=== PATIENT | male | born 1970 | race Hispanic/Latino ===

== ENCOUNTER 2022-02-19 13:15 | Day surgery (SDC) | payer SELFPAY ==
[2022-02-19] MEDS ORDERED: Ringers Lactate 1,000 ML IV ONE (13:34)
[2022-02-19] MEDS ORDERED: CEFAZOLIN SODIUM 1 GM/VIAL ONE (13:34)
[2022-02-19] MEDS ORDERED: ACETAMINOPHEN 500 MG TAB ONE (14:09)
[2022-02-19] MEDS ORDERED: SODIUM HYPOCHLORITE 0.25% 473 ML ONE (14:20)
[2022-02-19] MEDS ORDERED: CELECOXIB 100 MG CAPSULE ONE (14:21)
[2022-02-19] MEDS ORDERED: propofoL 200 MG/20 ML VIAL IV ONE ×2 (14:23→14:24)
[2022-02-19 14:24] LABS: SARS-CoV-2 Antigen Rapid Res Negative (Negative)
[2022-02-19] MEDS ORDERED: LIDOCAINE 1% MPF 5 ML VIAL ONE (14:24)
[2022-02-19] MEDS ORDERED: ROCURONIUM 50 MG/5 ML VIAL IV ONE (14:24)
[2022-02-19] MEDS ORDERED: MIDAZOLAM HCL 2 MG/2 ML INJ ONE (14:24)
[2022-02-19] MEDS ORDERED: FENTANYL CITR 100 MCG/2 ML ONE (14:24)
[2022-02-19] MEDS ORDERED: VANCOMYCIN 1 GM/VIAL ONE (14:41)
[2022-02-19] MEDS ORDERED: SUGAMMADEX SODIUM 200 MG/2 ML VIAL IV ONE (15:03)
[2022-02-19 15:04] LABS: Absolute Lymphocytes (CBC) 2.3 K/uL (0.7-4.9); Hematocrit 39.9 % (39.6-49.0); Lymphocytes % 22.5 % (15.3-44.8); MCV 77.2 fL (80-100); MPV 6.7 fL (7.6-11.3); RBC Red Blood Cell Count 5.17 M/uL (4.33-5.43)
[2022-02-19 15:26] LABS: Potassium 4.3 mmol/L (3.5-5.1)
--- NOTE | 2022-02-19 15:32 | P.OP ---
Preoperative diagnosis: Central Back infected back cyst Postoperative diagnosis: Central Back infected back cyst Primary procedure: Excisional Debridment of Central Back infected back cyst Anesthesia: GETA Estimated blood loss: <50cc Specimen: cultures and debridement tissue Findings: ~12 cm x 12 cm infected cyst to muscle fascia, necrosis Complications: None Transferred to: Recovery Room Condition: Good
[2022-02-19] MEDS ORDERED: ALBUTEROL INHALER 60 PUFF/8 GM IH ONE (15:47)
[2022-02-19] MEDS ORDERED: SUCCINYLCHOLINE 20 MG/ML (10 ML) IV ONE (16:07)
[2022-02-19] MEDS ORDERED: HYDROMORPHONE HCL 1 MG/ML INJ ONE (16:21)
[2022-02-19 16:38] VITALS: BP 107/65; TEMP 96.3; O2SAT 97
[2022-02-19] MEDS ORDERED: HYDROCODONE/APAP 10/325 TAB ONE (16:53)
--- NOTE | 2022-02-20 02:21 | OP ---
Date of Procedure: 02/19/2022 Surgeon: David Paniagua MD, Preoperative Diagnosis: Central back infected cyst. Postoperative Diagnosis: Central back infected cyst. Procedure Performed: Excisional debridement of central back infected cyst. Anesthesia: General endotracheal. Estimated Blood Loss: Less than 50 cc. Specimen: Cultures were sent for both aerobic and anaerobic speciation and debridement tissue. Findings: Approximately 12 cm x 2 cm infected cyst with undermining extending to the muscle and fasc ia with obvious necrosis and abscess. Complications: None. The patient was transferred to recovery room in good condition. Procedure In Detail: After informed consent was obtained, the patient was brought to the operating r oom and prepped and draped in the usual sterile fashion. After adequate anesthesia achieved, a curvi linear incision was made on the upper central portion of the back down to an area of fluctuance. Imm ediately encountered was an abscess like material emanating approximately 0.5 L of infected abscess m aterial with necrosis of surrounding tissue under pressure. All of this was cultured for both aerobi c and anaerobic speciation. All tissue was then debrided sharply using a 15 blade down to subcutaneo us tissue using combination of electrocautery and circumferentially dissecting out all necrotic tissu e. Electrocautery was used to help achieve hemostasis. A curette was used to remove all nonviable t issue. The area was copiously irrigated. Hemostasis was once again achieved with electrocautery. A fter curetting was performed, the area was copiously irrigated once again. No additional hemostatic measures were required. The wound was then packed with Dakin-soaked Kerlix and a sterile dressing wa s placed over top. The patient tolerated the procedure without any complication and transferred to P ACU in good condition. All counts were correct at the end of the case. TK/MODL Voice ID: [id number] Report ID: [id number]
--- NOTE | 2022-02-20 06:22 | EKG ---
Test Date: 2022-02-19 Test Time: 13:52:23 Wearing Apparel Assembler: JEOVANNY MEASUREMENT RESULTS: Intervals: Rate: 61 WY: 154 QRSD: 96 QT: 410 QTc: 412 [place]: P: 58 WY: 154 QRS: -28 T: -5 INTERPRETIVE STATEMENTS: Normal sinus rhythm Minimal voltage criteria for LVH, may be normal variant Borderline ECG Compared to ECG 09/27/2014 06:52:07 Left ventricular hypertrophy now present Electronically Signed On 02-20-22 06:21:45 CDT by Jeramie Rebolledo
== END 2022-02-19 17:01 | disposition home or self-care (01) ==
LOC: OR 13:15
PROVIDERS: ATTEND Surgery
PROC: 0JB70ZZ Excision of Back Subcutaneous Tissue and Fascia, Open Approach (ICD-10-PCS; principal; 2022-02-19 15:45)
DX: L72.0 Epidermal cyst (principal); L02.212 Cutaneous abscess of back [any part, except buttock and flank]; I96 Gangrene, not elsewhere classified; Z20.822 Contact with and (suspected) exposure to COVID-19
CPT/HCPCS: 36415; 80048; 85025; 87070; 87075; 87205; 87811; 88304; 93005; J0330; J0690; J1170; J2250; J2704; J3010; J3370; J7120

== ENCOUNTER 2023-09-10 13:05 | Inpatient (IN) | payer SELFPAY ==
--- OUTSIDE RECORDS SUMMARY | 2023-09-10 13:07 | XMS REPORT | Continuity of Care Document ---
Author Name Unknown Address [address] [facility] [address] [place], [place] [id number] [place] [address] [facility] Address [address] [facility] [address] [place] [address] Care Team Providers Care Spot Washer Name Role Phone Reuben Ding Attending Clinician Unavailable Problems Condition Name Condition Details Condition Category Status Onset Date Resolution Date Last Treatment Date Treating Clinician Comments Source [id number] Essential hypertensi on Problem [facility] [id number] Body mass index [BMI] 45.0-49.9, adult Problem [facility] [id number] Mixed hyperlipid emia Problem [facility] Allergies, Adverse Reactions, Alerts Allergy Name Allergy Type Status Severity Reaction(s) Onset Date Inactive Date Treating Clinician Comments Source penicill amine penicill amine Active Unknown [facility] Social History Social Habit Start Date Stop Date Quantity Comments Source History of Tobacco Use [facility] Sex Assigned At [facility] Smoking Status Start Date Stop Date Source Never Smoker [facility] Medications Ordered Medication Name Filled Medication Name Start Date Stop Date Current Medication? Ordering Clinician Indication Dosage Frequency Signature (SIG) Comments Components Source Atorvastati n Calcium 40 MG Atorvastati n Calcium 40 MG 08-09 00:00: 00 No 1{table t} QD Atorvastat in Calcium 40 MG Atorvastati n Calcium 40 MG Atorvastati n Calcium 40 MG - 00:00: 00 No 1{table t} QD Atorvastat in Calcium 40 MG Voltaren 1 % Voltaren 1 % No QD Voltaren 1 % Lisinopril 10 MG Lisinopril 10 MG No 1{table t} QD Lisinopril 10 MG Voltaren 1 % Voltaren 1 % No QD Voltaren 1 % Lisinopril 10 MG Lisinopril 10 MG No 1{table t} QD Lisinopril 10 MG Voltaren 1 % Voltaren 1 % No QD Voltaren 1 % Lisinopril 20 MG Lisinopril 20 MG No 1{table t} QD Lisinopril 20 MG Atorvastati n Calcium 40 MG Atorvastati n Calcium 40 MG No 1{table t} QD Atorvastat in Calcium 40 MG Vital Signs Vital Name Observation Time Observation Value Comments Ibrahima gleason height 2023-09-02 13:40:00 69 [in_i] Commo n [facility] weight 2023-09-02 13:40:00 308.6 [lb_av] Co [facility] temperature 2023-09-02 13:40:00 98.6 [degF] Com [facility] bmi 2023-09-02 13:40:00 45.57 kg/m2 Comm on [facility] oximetry 2023-09-02 13:40:00 98 % Commo n [facility] respiratory rate 2023-09-02 13:40:00 16 /min [facility] blood pressure systolic 2023-09-02 13:40:00 150 mm[Hg] [facility] blood pressure diastolic 2023-09-02 13:40:00 82 mm[Hg] [facility] height 2023-08-09 15:40:00 69 [in_i] Commo n [facility] weight 2023-08-09 15:40:00 316.4 [lb_av] Co [facility] temperature 2023-08-09 15:40:00 98.4 [degF] Com mon [facility] bmi 2023-08-09 15:40:00 46.72 kg/m2 Comm on [facility] oximetry 2023-08-09 15:40:00 97 % Commo n [facility] respiratory rate 2023-08-09 15:40:00 16 /min [facility] blood pressure systolic 2023-08-09 15:40:00 134 mm[Hg] [facility] blood pressure diastolic 2023-08-09 15:40:00 78 mm[Hg] [facility] height 2023-07-07 16:00:00 69 [in_i] Commo n [facility] weight 2023-07-07 16:00:00 309 [lb_av] Comm on [facility] temperature 2023-07-07 16:00:00 99.2 [degF] Com mon [facility] bmi 2023-07-07 16:00:00 45.63 kg/m2 Comm on [facility] oximetry 2023-07-07 16:00:00 97 % Commo n [facility] respiratory rate 2023-07-07 16:00:00 16 /min [facility] Encounters Start Date/Time End Date/Time Encounter Type Admission Type Attending [facility] Facility Care Department Encounter ID Source 2023-07-07 15:42:01 Outpatient [facility] [id number] [facility] 2023-09-02 00:00:00 2023-09-02 00:00:00 OFFICE VISIT ESTAB PT LEVEL 4 [facility] [id number] [facility] 2023-08-09 00:00:00 2023-08-09 00:00:00 OFFICE VISIT ESTAB PT LEVEL 4 [facility] [id number] [facility] 2023-07-07 00:00:00 2023-07-07 00:00:00 OFFICE VISIT NEW PT LEVEL 4 [facility] [id number] [facility]
[2023-09-10] MEDS ORDERED: ONDANSETRON 4 MG/2 ML VIAL ONE (13:58)
[2023-09-10] MEDS ORDERED: NA CHLORIDE 0.9% 1,000 ML ONE (13:59)
[2023-09-10] MEDS ORDERED: MORPHINE 4 MG/ML SYR ONE (13:59)
[2023-09-10 14:24] LABS: Absolute Lymphocytes (CBC) 0.7 K/uL (0.7-4.9); Hematocrit 41.8 % (39.6-49.0); Lymphocytes % 3.7 % (15.3-44.8); MCV 77.5 fL (80-100); Platelets 294 thou/uL (152-406); RBC Red Blood Cell Count 5.39 M/uL (4.33-5.43)
[2023-09-10 14:43] LABS: Albumin 3.7 g/dL (3.4-5.0); Bilirubin Total 0.7 mg/dL (0.2-1.0); Potassium 3.8 mEq/L (3.5-5.1); Protein, Total 8.3 g/dL (6.4-8.2); Troponin High Sensitivity 9.8 pg/mL (<58.9)
--- NOTE | 2023-09-10 15:08 | RAD REPORT ---
EXAM DESCRIPTION: RAD - Chest Single View - 09/10/2023 2:58 pm CLINICAL HISTORY: CHEST PAIN COMPARISON: CHEST SINGLE VIEW dated 09/26/2014 FINDINGS: Lines: None. Lungs: No evidence of edema or pneumonia. Question vascular congestion. Pleural: No significant pleural effusions or pneumothorax. Cardiac: The heart size is within normal limits. Mediastinum: Within normal limits. Bones: No acute fractures. Other: None IMPRESSION: Question vascular congestion but no alveolar edema or consolidative airspace disease.
--- NOTE | 2023-09-10 15:52 | EDPHYS ---
Physician Documentation [facility] Name: Freddie Laird Age: 52 yrs Sex: Male : 1970 Arrival Date: 09/10/2023 Time: 13:05 Bed 7 Private MD: ED Physician Niko Bernal HPI: 09/10 13:52 This 52 yrs old Male presents to ER via Unassigned with complaints of ec2 Abdominal Pain. 13:52 Patient arrives today for evaluation of upper abdominal pain that started approximately ec2 12 hours ago. Reports associated nausea without vomiting, reports no diarrhea symptoms. Denies urinary complaints. Reports no abdominal surgeries. Does report history of hypertension and hyperlipidemia.. Historical: - Allergies: 13:56 No Known Allergies; cm10 - PMHx: 13:56 Hypertensive disorder; Hypercholesterolemia; cm10 - Immunization history:: Adult Immunizations up to date. - Social history:: Smoking status: Patient denies any tobacco usage or history of. ROS: 13:52 Constitutional: as per hpi ec2 Exam: 13:52 Constitutional: GEN: NAD Head: atraumatic Eyes: EOMI Ears: External ears are ec2 normal. CV: regular rate LUNGS: no respiratory distress ABD: non-distended, soft, tender in the epigastrium, no guarding, not rigid SKIN: no evidence of rashes MSK: no evidence of trauma NEURO: moves all extremities equally Vital Signs: 13:54 BP 167 / 84; Pulse 64; Resp 17; Temp 98.8; Pulse Ox 99% ; Weight 138.35 kg; Height 5 cm10 ft. 9 in. ; Pain 8/10; 16:00 BP 156 / 86; Pulse 66; Resp 15; Pulse Ox 98% on R/A; hb 16:36 BP 144 / 78; Pulse 79; Resp 17; Pulse Ox 98% ; hb 13:54 Body Mass Index 45.04 (138.35 kg, 175.26 cm) cm10 13:54 Pain Scale: Adult cm10 MDM: 13:42 Patient medically screened. ec2 13:52 ED course: Patient arrives today for upper abdominal pain. Examination remarkable for ec2 abdominal findings as noted above. Will obtain lab work, imaging, treat the patient's pain and reassess the patient. Currently considering process such as gastroenteritis, pancreatitis, gallbladder pathology. Will also assess for ACS.. 14:10 Data reviewed: vital signs. ED course: EKG independently reviewed and interpreted by ec2 wv, shows normal sinus rhythm, rate of 69, no acute ST segment elevations, nonconcerning intervals.. 14:38 ED course: CBC with leukocytosis noted.. ec2 14:44 ED course: Metabolic profile is reassuring. Lipase within normal ranges, troponin ec2 within normal ranges. . 15:44 ED course: CT imaging with concern for cholecystitis, will give the patient sally Chirinos surgery consulted, discussed case with the hospitalist, pending admission.. 09/10 13:52 Order name: CBC with Diff; Complete Time: 14:38 ec2 09/10 13:52 Order name: CMP; Complete Time: 14:43 ec2 09/10 13:52 Order name: Lipase; Complete Time: 14:43 ec2 09/10 13:53 Order name: Troponin High Sensitivity; Complete Time: 14:43 ec2 09/10 14:48 Order name: UAM ec2 09/10 16:36 Order name: Basic Metabolic Panel EDMS 09/10 16:36 Order name: Basic Metabolic Panel EDMS 09/10 16:36 Order name: Basic Metabolic Panel EDMS 09/10 16:36 Order name: Basic Metabolic Panel EDMS 09/10 16:36 Order name: Basic Metabolic Panel EDMS 09/10 16:36 Order name: Basic Metabolic Panel EDMS 09/10 16:36 Order name: CBC with Automated Diff EDMS 09/10 16:36 Order name: CBC with Automated Diff EDMS 09/10 16:36 Order name: CBC with Automated Diff EDMS 09/10 16:36 Order name: CBC with Automated Diff EDMS 09/10 16:36 Order name: CBC with Automated Diff EDMS 09/10 16:36 Order name: CBC with Automated Diff EDMS 09/10 16:36 Order name: Magnesium EDMS 09/10 16:36 Order name: Magnesium EDMS 09/10 16:36 Order name: Magnesium EDMS 09/10 16:36 Order name: Magnesium EDMS 09/10 16:36 Order name: Magnesium EDMS 09/10 16:36 Order name: Magnesium EDMS 09/10 16:36 Order name: Phosphorus EDMS 09/10 16:36 Order name: Phosphorus EDMS 09/10 16:36 Order name: Phosphorus EDMS 09/10 16:36 Order name: Phosphorus EDMS 09/10 16:36 Order name: Phosphorus EDMS 09/10 16:36 Order name: Phosphorus EDMS 09/10 16:36 Order name: Troponin High Sensitivity EDCO 09/10 16:36 Order name: Troponin High Sensitivity EDCO 09/10 16:36 Order name: Troponin High Sensitivity EDCO 09/10 13:52 Order name: CT Abd/Pelvis - IV Contrast Only; Complete Time: 16:11 ec2 09/10 13:53 Order name: CXR XRAY; Complete Time: 15:17 ec2 09/10 15:46 Order name: US Abdomen Limited; Complete Time: 16:32 ec2 09/10 13:53 Order name: EKG; Complete Time: 13:54 ec2 09/10 16:36 Order name: CONS Physician Consult EDCO 09/10 13:52 Order name: IV Saline Lock; Complete Time: 14:41 ec2 09/10 13:52 Order name: Labs collected and sent; Complete Time: 14:41 ec2 09/10 13:53 Order name: EKG - Nurse/Tech; Complete Time: 14:06 ec2 Administered Medications: 14:41 Drug: NS 0.9% IV 1000 ml IV at 1 bolus Per protocol; 1000 mL bolus Route: IV; Rate: 1 hb bolus; Site: right antecubital; 14:41 Drug: Ondansetron IVP 4 mg IVP once; over 2 minutes Route: IVP; Site: right antecubital;hb 14:41 Drug: morphine IVP or IV 4 mg IVP once over 4 mins Route: IVP; Infused Over: 4 mins; hb Site: right antecubital; 16:11 Drug: Piperacillin-Tazobactam IVPB 3.375 grams IVPB once over 60 mins; (mix in NS 100 hb mL) Route: IVPB; Infused Over: 60 mins; Site: left antecubital; Disposition Summary: 09/10/23 15:52 Hospitalization Ordered Notes: Hospitalization Status: Inpatient Admission ec2 Provider: Jay Jacobson ec2 Location: Telemetry/MedSur (Inpatient) ec2 Condition: Stable ec2 Problem: new ec2 Symptoms: have improved ec2 Bed/Room Type: Standard ec2 Room Assignment: 210(09/10/23 16:45) as6 Diagnosis - Acute cholecystitis ec2 Forms: - Medication Reconciliation Form ec2 - SBAR form ec2 - Leadership Thank You Letter ec2 Signatures: Dispatcher [employer] Faith Knox RN RN True Zazueta RN RN as6 Fide Westfall RN RN cm10 Niko Bernal MD MD ec2 Corrections: (The following items were deleted from the chart) 16:45 15:52 ec2 as6
--- NOTE | 2023-09-10 15:52 | ER ---
Nurse's Notes [facility] Name: Freddie Laird Age: 52 yrs Sex: Male : 1970 Arrival Date: 09/10/2023 Time: 13:05 Bed 7 Private MD: Diagnosis: Acute cholecystitis Presentation: 09/10 13:54 Chief complaint: Patient states: Epigastric abdominal pain onset at 0300 this morning. cm10 Pt states that the pain woke him up from his sleep. Pt reports vomiting. Pt states that he has taken Pepto and Tums with no relief. Pt noted to have tenderness to upper abdomen. Coronavirus screen: Vaccine status: Patient reports receiving the 1st dose of the Covid vaccine. Client denies travel out of the [place] in the last 14 days. Ebola Screen: Patient denies travel to an Ebola-affected area in the 21 days before illness onset. No symptoms or risks identified at this time. Initial Sepsis Screen: Does the patient meet any 2 criteria? No. Patient's initial sepsis screen is negative. Does the patient have a suspected source of infection? No. Patient's initial sepsis screen is negative. Risk Assessment: Do you want to hurt yourself or someone else? Patient reports no desire to harm self or others. Onset of symptoms was September 10, 2023. 13:54 Method Of Arrival: Ambulatory cm10 13:54 Acuity: WENDY 3 cm10 Historical: - Allergies: 13:56 No Known Allergies; cm10 - PMHx: 13:56 Hypertensive disorder; Hypercholesterolemia; cm10 - Immunization history:: Adult Immunizations up to date. - Social history:: Smoking status: Patient denies any tobacco usage or history of. Screenin:43 [facility] ED Fall Risk Assessment (Adult) Score/Fall Risk Level 0 - 2 = Low Risk hb Oriented to surroundings, Maintained a safe environment, Educated pt \T\ family on fall prevention, incl call for assistance when getting out of bed. Abuse screen: Denies threats or abuse. Denies injuries from another. Nutritional screening: No deficits noted. Tuberculosis screening: No symptoms or risk factors identified. Assessment: 14:25 General: Appears in no apparent distress. Behavior is calm, cooperative. Pain: Pain hb currently is 8 out of 10 on a pain scale. Neuro: Level of Consciousness is awake, alert, obeys commands, Oriented to person, place, time, situation. Cardiovascular: Patient's skin is warm and dry. Respiratory: Respiratory effort is even, unlabored, Respiratory pattern is regular, symmetrical. GI: Reports lower abdominal pain, upper abdominal pain, nausea. : No signs and/or symptoms were reported regarding the genitourinary system. EENT: No signs and/or symptoms were reported regarding the EENT system. Derm: Skin is pink, warm \T\ dry. Musculoskeletal: No signs and/or symptoms reported regarding the musculoskeletal system. 16:05 Reassessment: Patient appears in no apparent distress at this time. Patient and/or hb family updated on plan of care and expected duration. Pain level reassessed. Patient is alert, oriented x 3, equal unlabored respirations, skin warm/dry/pink. Vital Signs: 13:54 BP 167 / 84; Pulse 64; Resp 17; Temp 98.8; Pulse Ox 99% ; Weight 138.35 kg; Height 5 cm10 ft. 9 in. ; Pain 8/10; 16:00 BP 156 / 86; Pulse 66; Resp 15; Pulse Ox 98% on R/A; hb 16:36 BP 144 / 78; Pulse 79; Resp 17; Pulse Ox 98% ; hb 13:54 Body Mass Index 45.04 (138.35 kg, 175.26 cm) cm10 13:54 Pain Scale: Adult cm10 ED Course: 13:05 Patient arrived in ED. ts1 13:06 Niko Bernal MD is Attending Physician. ec2 13:56 Triage completed. cm10 13:57 Arm band placed on Patient placed in an exam room, on a stretcher. cm10 14:16 Inserted saline lock: 20 gauge in right antecubital area, using aseptic technique. hb Blood collected. 14:43 Patient has correct armband on for positive identification. Provided Education on: hb tests, result times.. 14:43 No provider procedures requiring assistance completed. hb 14:49 Meghan Ayers, RN is Primary Nurse. ph 15:00 CXR XRAY In Process Unspecified. EDMS 15:22 CT Abd/Pelvis - IV Contrast Only In Process Unspecified. EDMS 15:52 Jay Jacobson is Hospitalizing Provider. ec2 16:16 US Abdomen Limited In Process Unspecified. EDMS Administered Medications: 14:41 Drug: NS 0.9% IV 1000 ml IV at 1 bolus Per protocol; 1000 mL bolus Route: IV; Rate: 1 hb bolus; Site: right antecubital; 14:41 Drug: Ondansetron IVP 4 mg IVP once; over 2 minutes Route: IVP; Site: right antecubital;hb 14:41 Drug: morphine IVP or IV 4 mg IVP once over 4 mins Route: IVP; Infused Over: 4 mins; hb Site: right antecubital; 16:11 Drug: Piperacillin-Tazobactam IVPB 3.375 grams IVPB once over 60 mins; (mix in NS 100 hb mL) Route: IVPB; Infused Over: 60 mins; Site: left antecubital; Outcome: 15:52 Decision to Hospitalize by Provider. ec2 17:56 Patient left the ED. hb Signatures: Dispatcher [employer] Meghan Cummins RN RN Faiht Reich RN RN Estela Ramírez PAS PAS ts1 Fide Westfall RN RN cm10 Niko Bernal MD MD ec2
--- NOTE | 2023-09-10 16:00 | RAD REPORT ---
EXAM DESCRIPTION: CTAbdomen Pelvis W Contrast - 09/10/2023 3:20 pm CLINICAL HISTORY: ABD PAIN COMPARISON: CT ABD PELVIS W CONTRAST dated 08/23/2007 TECHNIQUE: CT of the abdomen and pelvis was performed. All CT scans are performed using dose optimization technique as appropriate and may include automated exposure control or mA/KV adjustment according to patient size. FINDINGS: Lower chest: No acute abnormality. Liver: No acute abnormality or suspicious lesions. Biliary: Mild pericholecystic edema and distended gallbladder. Stomach: No significant focal abnormality. Duodenum: No significant focal abnormality. Pancreas: No significant abnormality. Spleen: No significant abnormality. Adrenal: No suspicious lesions. Kidney/ureter: No hydronephrosis. No renal calculi. Low-density left renal lesions which are likely c ysts. Retroperitoneum: No retroperitoneal adenopathy. Vascular: No aneurysm. Bowel: No significant focal abnormality. Normal appendix . Peritoneum: No ascites or free air. Small fat containing inguinal hernias. Bladder: Grossly unremarkable. Reproductive: Mild prostatomegaly. Bones: No acute fracture. Other: n/a IMPRESSION: Mild pericholecystic edema and distended gallbladder could reflect acute cholecystitis. Correlate clinically. Consider ultrasound.
[2023-09-10] MEDS ORDERED: NA CHLORIDE 0.9% 100 ML ONE (16:07)
[2023-09-10] MEDS ORDERED: PIPERACIL/TAZO 3.375 GM VIAL IV ONE (16:08)
--- NOTE | 2023-09-10 16:18 | P.HP ---
Certification for Inpatient Patient admitted to: Inpatient With expected LOS: <2 Midnights Patient will require the following post-hospital care: None Practitioner: I am a practitioner with admitting privileges, knowledge of patient current condition, hospital course, and medical plan of care. Services: Services provided to patient in accordance with Admission requirements found in Title 42 Section 412.3 of the Code of Federal Regulations Patient History Date of Service: 09/10/23 Reason for admission: Cholecystitis History of Present Illness: Freddie Laird is a 52-year-old male with past medical history of hypertensive disorder and hypercholesterolemia who presents to the ED with complaints of upper abdominal pain associated with nausea that started approximately 12 hours prior to arrival. He reports feeling like he had indigestions then pain feeling unbearable. He became nauseous with dry heaves. On examination, he appears calm and comfortable, with upper abdominal tenderness. He is afebrile, with leukocytosis of 18.5, and US abd/pelvis showing an impacted stone at the neck. While in the ED he was given zosyn, zofran, morphine, and NS. Initial vitals BP 167 / 84; Pulse 64; Resp 17; Temp 98.8; Pulse Ox 99%. Laboratory evaluation WBC 18.5, lipase 19, glucose 138, AST 11, ALT 28, alk phos 134, troponin 9.8, urine pending CT abdomen pelvis reports mild pericholecystic edema and distended gallbladder could reflect acute cholecystitis. Correlate clinically consider ultrasound. US abdomen reports "Cholelithiasis is present. The gallbladder wall is mildly thickened measuring 4 millimeters. Common bile duct measures just under 6 millimeters and is within normal limits. A stone is impacted at the neck. The liver demonstrates no findings of intrahepatic biliary dilatation. IMPRESSION: Cholelithiasis with stone impacted at the gallbladder neck. Mild gallbladder wall thickening. Findings are concerning for acute cholecystitis. Chest x-ray reports Question vascular congestion but no alveolar edema or consolidative airspace disease. Problem will be admitted to hospital service for further treatment of cholecystitis, Dr. Paniagua consulted. Allergies Penicillins Allergy (Severe, Verified 09/27/14 12:47) Itching/Hives/Rash Home Medications: NK [No Home Meds] 02/19/22 - Past Medical/Surgical History Diabetic: No -: Kidney stones -: sx on twisted testicles -: Lipotripsy - Family History Father -: Heart disease, Hypertension, Kidney disease - Social History Alcohol use: Yes CD- Drugs: No Caffeine use: Yes Review of Systems General: Malaise Gastrointestinal: Nausea, Abdominal Pain (upper abdominal pain), Distention Physical Examination - Physical Exam General: Alert, In no apparent distress, Oriented x3 HEENT: Atraumatic, Normocephalic, PERRLA Neck: Supple, 2+ carotid pulse no bruit, JVD not distended Respiratory: Clear to auscultation bilaterally, Normal air movement Cardiovascular: No edema, Normal pulses, Regular rate/rhythm, Normal S1 S2 Capillary refill: <2 Seconds Gastrointestinal: Normal bowel sounds, Distended (obeses), Tenderness Musculoskeletal: No clubbing, No swelling, No contractures Integumentary: No rashes, No breakdown, No significant lesion, No tenderness/swelling Neurological: Normal speech, Normal strength at 5/5 x4 extr, Normal tone - Studies Laboratory Data (last 24 hrs) 09/10/23 09/10/23 14:17 14:17 WBC 18.50 H Hgb 14.0 Hct 41.8 Plt Count 294 Sodium 138 Potassium 3.8 BUN 10 Creatinine 0.91 Glucose 130 H Total Bilirubin 0.7 AST 11 L ALT 28 Alkaline Phosphatase 134 H Lipase 19 Assessment and Plan - Plan Assessment and Plan Acute cholecystitis Nausea WBC18 US abd showing impacted stone at neck CT abd/pelvis showing "mild pericholecystic edema and distended gallbladder could reflect acute cholecystitis" Dr. Paniagua consulted zosyn, NS, morphine and zofran given in the ED levaquin/flagyl and gentle IVF Zofran and morphine NPO Hyperglycemia Serum glucose 138 monitor in AM labs A1C pending History HTN/HLD restart home medications DVT ppx SCD for now Full code LOS 2 days Discharge Plan: Home Plan to discharge in: 48 Hours - Advance Directives Does patient have a Living Will: No Does patient have a Durable POA for Healthcare: No Time Spent Managing Pts Care (In Minutes): 50
--- NOTE | 2023-09-10 16:24 | RAD REPORT ---
EXAM DESCRIPTION: US - Abdomen Exam Limited - 09/10/2023 4:15 pm CLINICAL HISTORY: GB COMPARISON: Abdomen Pelvis W Contrast dated 09/10/2023 FINDINGS: Cholelithiasis is present. The gallbladder wall is mildly thickened measuring 4 millimeter s. Common bile duct measures just under 6 millimeters and is within normal limits. A stone is impacte d at the neck. The liver demonstrates no findings of intrahepatic biliary dilatation. IMPRESSION: Cholelithiasis with stone impacted at the gallbladder neck. Mild gallbladder wall thicke chun. Findings are concerning for acute cholecystitis.
[2023-09-10] MEDS ORDERED: ONDANSETRON 4 MG/2 ML VIAL IV PRN (16:31)
[2023-09-10] MEDS ORDERED: MORPHINE 2 MG/ML SYR IV PRN (16:38)
[2023-09-10] MEDS ORDERED: HYDRALAZINE HCL 20 MG/ML VIAL IV PRN (17:13)
[2023-09-10 17:27] LABS: Specific Gravity > 1.030 (1.005-1.030); Urine Bacteria None Seen /HPF (<20); Urine Bilirubin NEGATIVE (Negative); Urine Blood Negative (Negative); Urine Clarity Clear (Clear); Urine Color Light-Yellow (Yellow); Urine Glucose NEGATIVE (Negative); Urine Mucus Slight /HPF (None Seen); Urine Protein NEGATIVE (Negative); Urine RBC <5 /HPF (None Seen); Urine Urobilinogen Normal (Normal); Urine pH 6.5 (5.0-7.0)
[2023-09-10] MEDS: METRONIDAZOLE 500mg IVPB 500 MG/100 ML BAG IV SCH (18:27)
[2023-09-10] MEDS: NA CHLORIDE 0.9% 1,000 ML IV SCH (18:27)
[2023-09-10] MEDS: Levofloxacin 750mg IV 750 MG/150 ML BAG IV SCH (21:37)
[2023-09-11 03:14] LABS: Absolute Lymphocytes (CBC) 1.7 K/uL (0.7-4.9); Hematocrit 35.9 % (39.6-49.0); Lymphocytes % 11.7 % (15.3-44.8); MCV 77.4 fL (80-100); MPV 7.2 fL (7.6-11.3); Platelets 274 thou/uL (152-406); RBC Red Blood Cell Count 4.64 M/uL (4.33-5.43)
[2023-09-11 03:38] LABS: Magnesium 2.1 mg/dL (1.6-2.4); Potassium 3.9 mEq/L (3.5-5.1); Troponin High Sensitivity 8.8 pg/mL (<58.9)
[2023-09-11] MEDS ORDERED: POTASSIUM PHOS IN 0.9 % NACL 15 MMOL/250 ML BAG IV ONE (05:00)
[2023-09-11] MEDS: POTASSIUM PHOS IN 0.9 % NACL 15 MMOL/250 ML BAG IV ONE (08:08)
[2023-09-11] MEDS ORDERED: FENTANYL CITR 250 MCG/5 ML ONE (09:26)
[2023-09-11] MEDS ORDERED: MIDAZOLAM HCL 2 MG/2 ML INJ ONE (09:26)
[2023-09-11] MEDS ORDERED: ROCURONIUM 50 MG/5 ML VIAL IV ONE ×2 (09:27→10:29)
[2023-09-11] MEDS ORDERED: LIDOCAINE 1% MPF 5 ML VIAL ONE (09:27)
[2023-09-11] MEDS ORDERED: propofoL 200 MG/20 ML VIAL IV ONE (09:27)
[2023-09-11] MEDS ORDERED: KETOROLAC 30 MG/ML INJ ONE (09:28)
[2023-09-11] MEDS ORDERED: GLYCOPYRROLATE 0.2 MG/ML SYR ONE ×3 (09:29)
[2023-09-11] MEDS ORDERED: NEOSTIGMINE 1 MG/ML -10 ML VIAL ONE (09:29)
[2023-09-11] MEDS ORDERED: ONDANSETRON 4 MG/2 ML VIAL ONE (09:29)
[2023-09-11] MEDS ORDERED: dexAMETHasone 4 MG/ML VIAL ONE (09:29)
[2023-09-11] MEDS: NA CHLORIDE 0.9% 0 ML ONE (09:42)
[2023-09-11] MEDS: Ringers Lactate 1,000 ML IV ONE ×2 (09:45→11:20)
[2023-09-11] MEDS: CEFOXITIN SODIUM 2 GM/VIAL ONE (10:10)
[2023-09-11] MEDS: BUPIVACAINE 0.25% PF 10 ML VIAL ONE (10:27)
--- NOTE | 2023-09-11 11:28 | P.OP ---
Preoperative diagnosis: Acute Calculous Cholecystitis Postoperative diagnosis: Acute Calculous Cholecystitis Primary procedure: Laparoscopic Cholecystectomy with ICG Cholangiography Anesthesia: GETA + Local Estimated blood loss: <10cc Specimen: Gallbladder, portion of cystic duct Findings: stone impacted in cystic duct, severe adhesions, thick rind Complications: None Implants: Esteban Hemostatic Powder Transferred to: Recovery Room Condition: Good
[2023-09-11] MEDS: ALBUTEROL INHALER 60 PUFF/8 GM IH ONE (11:44)
[2023-09-11] MEDS: ALBUTEROL 2.5 MG/3 ML NEB SOL ONE (11:49)
[2023-09-11] MEDS: MIDAZOLAM HCL 2 MG/2 ML INJ ONE (11:57)
[2023-09-11] MEDS ORDERED: HYDROCODONE/APAP 5/325 MG TAB PO PRN (12:07)
--- NOTE | 2023-09-11 12:25 | OP ---
Date of Procedure: 09/11/2023 Surgeon: David Paniagua MD, Preoperative Diagnosis: Acute calculous cholecystitis. Postoperative Diagnosis: Acute calculous cholecystitis. Procedure Performed: Laparoscopic cholecystectomy with indocyanine green cholangiography. Anesthesia: General endotracheal plus local with 0.25% Marcaine. Estimated Blood Loss: 10 cc. Specimen: Gallbladder and a portion of the cystic duct. Findings: 1.There was a stone impacted in the cystic duct near the confluence. 2.Somewhat shortened cystic duct was appreciated. 3.Thick inflammatory rind over the entire anterior surface of the gallbladder. 4.Large amount of adipose tissue predominantly located in the right upper quadrant with severe adhes ions to the cystic duct. Complications: None immediate. Implant: Esteban hemostatic powder. Disposition: The patient transferred to recovery room in good condition. Procedure In Detail: After informed consent was obtained, the patient was brought to the operating r oom, prepped and draped in the usual sterile fashion. After adequate anesthesia was achieved, I anes thetized an area of the supraumbilical position, made an incision and a 5 mm surgical optical trocar was introduced in the abdomen without complication. Insufflation was obtained to 15 mmHg at this oliva e. There was no injury to vital structures upon entering the abdomen. Three additional trocars were placed, one in the epigastrium, one in the right upper quadrant, one in the right mid abdomen. All of these were similarly anesthetized, sharply incised and 5 mm trocar was placed under direct visuali zation without incident or complication. The umbilical trocar was then upsized to a [address] visualization without incident or complication. The patient was then positioned in the head up ri ght-side up position. Ratcheted graspers used to attempt to grab the patient's gallbladder, which wa s impossible at this time due to significant inflammation. I had to peel back omental adhesions to e osiel approach the anterior surface of the gallbladder near the fundic portion. A decompression needle was brought in and stabbed into the fundic portion of the gallbladder and partial decompression of d ark bilious material was appreciated at this point, allowed for grasping of the gallbladder. I then grasped the gallbladder, placed it towards the patient's right shoulder and continued dissection down to the Felipa's pouch of the gallbladder at which point, I encircled the distal aspect of the gall bladder. There were multiple stones impacted both in the neck of the gallbladder as well as in the p roximal cystic duct and the cystic duct was somewhat shortened. As such, I attempted to milk back th e cystic duct stone but it was impacted against the stone in the gallbladder. As such, I encircled t he structures, identified both the cystic duct and cystic artery. Using indocyanine green cholangiog nicole, I confirmed the anatomic landmarks at this point and ensured that no injury to the common bile duct could be performed as I could appreciate the confluence at this point. I then obtained a criti vince view of safety after skeletonizing these structures, identified as the cystic duct and cystic art dago. I first transected the gallbladder near the cystic duct confluence between clips to allow for m ovement of the cystic duct stone back. After transecting the gallbladder at this point, I was able t o place double titanium clips also on the proximal side of the more proximal cystic duct away from th e confluence of the common duct still after appropriately pushing the cystic duct stone back to near the gallbladder confluence. It could not be completely delivered as it was still impacted in that as pect of the cystic duct. However, I could deliver away from the clips to allow for proper clip place ment at this point, and as I said, double titanium clips were placed. At this point, I transected th e proximal aspect of the cystic duct and placed this in an EndoCatch bag along. At this point, I lef t it in the right upper quadrant. At this point, I transected the cystic artery as well between doub le titanium clips on the proximal side and singly on the distal side. I then removed the gallbladder from the hepatic fossa. There was minimal bleeding from the hepatic fossa as there was significant inflammatory change with bubbling throughout the procedure making hemostatic maneuvers required. At this point, the gallbladder and the additional cystic duct stump with stone impacted were placed in E ndoCatch bag, removed from the umbilical trocar, and sent off for pathologic examination. Insufflati on obtained at this point. I then irrigated the hepatic fossa and achieved hemostasis using electroc autery. I then performed indocyanine green cholangiography once again and saw that there was no inju ry to the common bile duct and no leakage of bile throughout the procedure. The hepatic fossa was go od without any bleeding or leakage throughout the entire procedure. At this point, I irrigated once again and suctioned out all remaining effluent. I then placed Esteban hemostatic powder into the righ t upper quadrant hepatic fossa without incident or complication. At this point, the patient was plac ed in neutral position. I then closed the umbilical trocar site using a Cam-Srinath suture passe r with 0 Vicryl interrupted fashion with good approximation of tissues. A periumbilical defect appea red to be present inferiorly from the incision site, possibly consistent with an umbilical hernia. A t this point, I opted not to address this at this point. As such, all remaining trocars were removed . All skin incisions were then copiously irrigated and closed with interrupted ciara and a sterile dressing placed over top. The patient tolerated the procedure well without incident or complication , transferred to PACU in good condition. All counts were correct at the end of the case. BRISEIDA/ARGENT[place] Voice ID: [id number] Report ID: [id number]
--- NOTE | 2023-09-11 13:10 | RAD REPORT ---
EXAM DESCRIPTION: RAD - Chest Single View - 09/11/2023 12:50 pm CLINICAL HISTORY: HYPOXIA Chest pain. COMPARISON: Chest Single View dated 09/10/2023; CHEST SINGLE VIEW dated 09/26/2014 FINDINGS: Portable technique limits examination quality. Moderate pulmonary edema is seen. The heart is moderately enlarged in size. Trace bilateral pleural e ffusions. No displaced fractures. IMPRESSION: Moderate CHF.
[2023-09-11 14:26] LABS: Phosphorus 1.6 mg/dL (2.5-4.9); Potassium 4.2 mEq/L (3.5-5.1)
--- NOTE | 2023-09-11 14:50 | P.PN ---
Date of Service: 09/11/23 Subjective Awake and talking to Dr. Paniagua about surgery No acute disress mildly febrile OVN ROS 10 point ROS as noted above, otherwise negative Physical Exam General: AAAOx3, NAD, calm HEENT: Atraumatic, Normocephalic, PERRLA Neck: Supple, 2+ carotid pulse no bruit, JVD not distended Respiratory: Clear to auscultation bilaterally, Normal air movement Cardiovascular: No edema, Normal pulses, RRR, Normal S1 S2, no murmur appreciated Capillary refill: <2 Seconds Gastrointestinal: Normal bowel sounds, Distended (obese), Tenderness Musculoskeletal: No clubbing, No swelling, No contractures Integumentary: No rashes, No breakdown, No significant lesion, No tenderness/swelling Neurological: Normal speech, Normal strength at 5/5 x4 extr, Normal tone Vitals Reviewed Problem list Acute cholecystitis Nausea Hyperglycemia Assessment and Plan Acute cholecystitis Nausea WBC18 US abd showing impacted stone at neck CT abd/pelvis showing "mild pericholecystic edema and distended gallbladder could reflect acute cholecystitis" Dr. Paniagua consulted- surgical procedure today zosyn, NS, morphine and zofran given in the ED levaquin/flagyl and gentle IVF Zofran and morphine CLD then advance Hyperglycemia Serum glucose 117 monitor in AM labs A1C still pending History HTN/HLD restart home medications DVT ppx SCD for now Full code LOS 2 days Discharge Plan: Home Plan to discharge in: 48 Hours
[2023-09-11] MEDS: HEPARIN 5000 UNIT/ML 1 ML VIAL SQ SCH (15:58)
[2023-09-11] MEDS: INSULIN REGULAR (HUMAN) 100 UNIT/ML SQ SCH (15:59)
[2023-09-11 18:15] VITALS: BMI 44.9
[2023-09-12 06:27] LABS: Absolute Lymphocytes (CBC) 1.3 K/uL (0.7-4.9); Hematocrit 34.8 % (39.6-49.0); Lymphocytes % 8.7 % (15.3-44.8); MCV 77.4 fL (80-100); MPV 7.1 fL (7.6-11.3); Platelets 255 thou/uL (152-406); RBC Red Blood Cell Count 4.49 M/uL (4.33-5.43)
[2023-09-12 06:43] LABS: Albumin 2.7 g/dL (3.4-5.0); Bilirubin Direct 0.2 mg/dL (0-0.2); Bilirubin Indirect, Calculated 0.4 mg/dL (0.2-0.8); Bilirubin Total 0.6 mg/dL (0.2-1.0); Magnesium 2.1 mg/dL (1.6-2.4); Phosphorus 2.4 mg/dL (2.5-4.9); Protein, Total 6.6 g/dL (6.4-8.2)
[2023-09-12] MEDS: POTASS/SODIUM PHOSPHATE 1 PKT POWD.PACK PO SCH (08:02)
[2023-09-12 08:18] VITALS: BP 118/62; TEMP 97.7
--- NOTE | 2023-09-12 09:21 | P.PN ---
Subjective ROS 10 point ROS as noted above, otherwise negative Physical Exam General: AAAOx3, NAD, calm HEENT: Atraumatic, Normocephalic, PERRLA Neck: Supple, 2+ carotid pulse no bruit, JVD not distended Respiratory: Clear to auscultation bilaterally, Normal air movement Cardiovascular: No edema, Normal pulses, RRR, Normal S1 S2, no murmur appreciated Capillary refill: <2 Seconds Gastrointestinal: Normal bowel sounds, Distended (obese), Tenderness Musculoskeletal: No clubbing, No swelling, No contractures Integumentary: No rashes, No breakdown, No significant lesion, No tenderness/swelling Neurological: Normal speech, Normal strength at 5/5 x4 extr, Normal tone Vitals Reviewed Problem list Acute cholecystitis Nausea Hyperglycemia Assessment and Plan Acute cholecystitis Nausea WBC18 US abd showing impacted stone at neck CT abd/pelvis showing "mild pericholecystic edema and distended gallbladder could reflect acute cholecystitis" Dr. Paniagua consulted- surgical procedure today zosyn, NS, morphine and zofran given in the ED levaquin/flagyl and gentle IVF Zofran and morphine CLD then advance Hyperglycemia Serum glucose 117 monitor in AM labs A1C still pending History HTN/HLD restart home medications DVT ppx SCD for now Full code LOS 2 days Discharge Plan: Home Plan to discharge in: 48 Hours
--- NOTE | 2023-09-12 13:38 | EKG ---
Test Date: 2023-09-10 Test Time: 14:01:56 Fish And Wildlife Technician: SORAIDA Alexandra MEASUREMENT RESULTS: Intervals: Rate: 69 [place]: 148 QRSD: 106 QT: 396 QTc: 424 [place]: P: 38 [place]: 148 QRS: -33 T: -1 INTERPRETIVE STATEMENTS: Normal sinus rhythm Left axis deviation Minimal voltage criteria for LVH, may be normal variant Abnormal ECG Compared to ECG 02/19/2022 13:52:23 Left-axis deviation now present Electronically Signed On 09-12-23 13:33:27 ACCESS SERVICES ASSISTANT by Prieto Mckeon
--- NOTE | 2023-09-12 14:21 | P.DS ---
Admission Date: 09/10/23 Discharge Date: 09/12/23 Disposition: ROUTINE DISCHARGE Discharge Condition: GOOD Reason for Admission: Cholecystitis Brief History of Present Illness: Diagnosis: Acute cholecystitis Nausea Hyperglycemia HPI 09/10/23 Freddie Laird is a 52-year-old male with past medical history of hypertensive disorder and hypercholesterolemia who presents to the ED with complaints of upper abdominal pain associated with nausea that started approximately 12 hours prior to arrival. He reports feeling like he had indigestions then pain feeling unbearable. He became nauseous with dry heaves. On examination, he appears calm and comfortable, with upper abdominal tenderness. He is afebrile, with leukocytosis of 18.5, and US abd/pelvis showing an impacted stone at the neck. While in the ED he was given zosyn, zofran, morphine, and NS. Initial vitals BP 167 / 84; Pulse 64; Resp 17; Temp 98.8; Pulse Ox 99%. Laboratory evaluation WBC 18.5, lipase 19, glucose 138, AST 11, ALT 28, alk phos 134, troponin 9.8, urine pending CT abdomen pelvis reports mild pericholecystic edema and distended gallbladder could reflect acute cholecystitis. Correlate clinically consider ultrasound. US abdomen reports "Cholelithiasis is present. The gallbladder wall is mildly thickened measuring 4 millimeters. Common bile duct measures just under 6 millimeters and is within normal limits. A stone is impacted at the neck. The liver demonstrates no findings of intrahepatic biliary dilatation. IMPRESSION: Cholelithiasis with stone impacted at the gallbladder neck. Mild gallbladder wall thickening. Findings are concerning for acute cholecystitis. Chest x-ray reports Question vascular congestion but no alveolar edema or consolidative airspace disease. Problem will be admitted to hospital service for further treatment of cholecystitis, Dr. Paniagua consulted. Hospital Course: Freddie Laird is a pleasant 52-year-old male with a past medical history significant for hypertensive disorder and hypercholesterolemia who was admitted to the [facility] on 09/10/23 for upper abdominal pain/ cholecystitis. Freddie Laird presented to the ED with chief complaint of upper abdominal pain associated with nausea. CT abd/pelvis showed a distended gallbladder, ultrasound showed cholelithiasis present. Dr. Paniagua was consulted and a laparoscopic cholecystectomy was performed 09/11/23. He tolerated the procedure well and has tolerated PO diet advancement throughout the day. He is recommended to continue with diet advancement with soft and low fat at this time. Please follow up with Dr. Paniagua in one week for a post op visit. Antibiotics and pain medication has been prescribed. On 09/12/23, Freddie was seen on morning rounds and deemed medically stable for dis charge. Freddie was discharged with instructions to schedule follow-up appointments with PCP and Dr. Paniagua. Freddie was provided prescriptions for ciprofloxacin, Flagyl, and Coolidge. The patient was given the opportunity to ask questions and reported no further questions. Furthermore, all questions were answered to the best of my ability. A copy of this discharge summary will be sent to the above providers to facilitate continuity of care. Today, I personally spent 50 minutes with Freddie, of which greater than 50% of the time was spent in patient education, counseling, and coordination of care as described above. Physical Exam General: Alert and oriented x 3, NAD, calm and comfortable HEENT: Atraumatic, Normocephalic, PERRLA Neck: Supple, 2+ carotid pulse no bruit, JVD not distended Respiratory: Clear to auscultation bilaterally, Normal air movement, on room air Cardiovascular: No edema, RRR, Normal S1 S2, no murmur appreciated Capillary refill: <2 Seconds Gastrointestinal: Normal bowel sounds, Distended (obese), Tenderness, soft on palpation Musculoskeletal: No clubbing, No swelling, No contractures, 2+ peripheral pulses Integumentary: No rashes, No breakdown, No significant lesion, No tenderness/swelling Neurological: Normal speech, Normal strength at 5/5 x4 extr, Normal tone Vital Signs/Physical Exam: Temp Pulse Resp BP Pulse Ox 97.7 F 51 17 118/62 97 09/12/23 08:00 09/12/23 08:00 09/12/23 08:00 09/12/23 08:00 09/12/23 08:00 Laboratory Data at Discharge: WBC 15.50 thou/uL (4.3-10.9) H 09/12/23 05:25 Hgb 11.6 g/dL (13.6-17.9) L 09/12/23 05:25 Hct 34.8 % (39.6-49.0) L 09/12/23 05:25 Plt Count 255 thou/uL (152-406) 09/12/23 05:25 Sodium 137 mEq/L (136-145) 09/12/23 05:25 Potassium 4.0 mEq/L (3.5-5.1) 09/12/23 05:25 BUN 11 mg/dL (7-18) 09/12/23 05:25 Creatinine 0.85 mg/dL (0.70-1.30) 09/12/23 05:25 Glucose 121 mg/dL (74-106) H 09/12/23 05:25 Phosphorus 2.4 mg/dL (2.5-4.9) L 09/12/23 05:25 Magnesium 2.1 mg/dL (1.6-2.4) 09/12/23 05:25 Total Bilirubin 0.6 mg/dL (0.2-1.0) 09/12/23 05:25 AST 27 U/L (15-37) 09/12/23 05:25 ALT 46 U/L (16-61) 09/12/23 05:25 Alkaline Phosphatase 91 U/L (45-117) 09/12/23 05:25 Lipase 15 U/L (13-75) 09/11/23 12:32 Home Medications: Atorvastatin Calcium [Lipitor] 40 mg PO DAILY 09/10/23 Lisinopril [Zestril] 20 mg PO 09/10/23 Ciprofloxacin HCl [Cipro] 500 mg PO BID #10 tab 09/12/23 Hydrocodone 5/APAP 325 [Coolidge 5/325*] 1 tab PO Q4H PRN #20 tab 09/12/23 metroNIDAZOLE [Flagyl] 500 mg PO TID #15 tab 09/12/23 New Medications: Ciprofloxacin HCl [Cipro] 500 mg PO BID #10 tab metroNIDAZOLE [Flagyl] 500 mg PO TID #15 tab Hydrocodone 5/APAP 325 [Coolidge 5/325*] 1 tab PO Q4H PRN #20 tab PRN Reason: Pain Scale 5-7 (Moderate) Physician Discharge Instructions: Freddie Laird presented to the ED with chief complaint of upper abdominal pain associated with nausea. CT abd/pelvis showed a distended gallbladder, ultrasound showed cholelithiasis present. Dr. Paniagua was consulted and a laparoscopic cholecystectomy was performed 09/11/23. He tolerated the procedure well and has tolerated diet advancement throughout the day. He is recommended to continue with diet advancement with soft and low fat at this time. Please follow up with Dr. Paniagua in one week for a post op visit. Antibiotics and pain medication has been prescribed. 1. Please call and schedule a follow-up appointment with your PCP in 3-5 days - Please follow-up with your PCP for medication refills/adjustments 2. Please call and schedule a follow-up appointment with Dr. Paniagua in one week for post op visit 3. Soft diet and progress as tolerated 4. Six weeks of light duty at work, decrease abdominal pressure with limited bending forward and lift less than 10 pounds 5. return to ED if symptoms worsen New medications Ciprofloxacin 500 mg PO BID x 5 days flagyl 500 mg PO TID x 5 days norco for pain level of 5-7 Activity: Ad casey Followup: David Paniagua MD [ACTIVE - CAN ADMIT] - TAYLOR TUTTLE [Primary Care Provider] -
[2023-09-12 14:23] VITALS: O2SAT 97
--- NOTE | 2023-09-15 14:51 | EKG ---
Test Date: 2023-09-11 Test Time: 13:01:25 Skating Carhop: AFSHAN MEASUREMENT RESULTS: Intervals: Rate: 71 [place]: 146 QRSD: 106 QT: 398 QTc: 432 [place]: P: 46 [place]: 146 QRS: -30 T: -13 INTERPRETIVE STATEMENTS: Normal sinus rhythm Left axis deviation Minimal voltage criteria for LVH, may be normal variant Abnormal ECG Compared to ECG 09/10/2023 14:01:56 No significant changes Electronically Signed On 09-15-23 14:44:39 TIMBER FELLER by Prieto Mckeon
== END 2023-09-12 15:52 | disposition home or self-care (01) | DRG 419 ==
LOC: ER 13:05 → ERHOLD 16:31 → 2ND 17:25
PROVIDERS: ADMIT Internal Medicine; ATTEND Internal Medicine
PROC: BF52200 Other Imaging of Gallbladder using Fluorescing Agent, Indocyanine Green Dye, Intraoperative (ICD-10-PCS; 2023-09-11)
PROC: 0FT44ZZ Resection of Gallbladder, Percutaneous Endoscopic Approach (ICD-10-PCS; principal; 2023-09-11 09:30)
DX: K80.00 Calculus of gallbladder with acute cholecystitis without obstruction (principal); I10 Essential (primary) hypertension; E78.00 Pure hypercholesterolemia, unspecified; R73.9 Hyperglycemia, unspecified; Z88.0 Allergy status to penicillin; Z79.899 Other long term (current) drug therapy
CPT/HCPCS: 31720; 36415; 71045; 74177; 76705; 80048; 80053; 80076; 81001; 82947; 83036; 83690; 83735; 84100; 84484; 85025; 88304; 93005; 94010; 99284; J0694; J1100; J1644; J2001; J2250; J2405; J2543; J2704; J2710; J3010; J7030; J7120; J7613; Q9967